=== PATIENT | female | born 1940 | race Caucasian/White ===

== ENCOUNTER 2021-08-20 10:12 | Inpatient (IN) | payer MEDICARE ==
[~2021-08-20] VITALS: Ht 157.5 cm; Wt 98.0 kg
[2021-08-20 10:48] LABS: BASOPHILS ABSOLUTE AUTO 0.04 K/mm3 (0.00-0.23); BASOPHILS PERCENT AUTO 1 % (0-2); EOSINOPHILS ABSOLUTE AUTO 0.11 K/mm3 (0.00-0.68); EOSINOPHILS PERCENT AUTO 1 % (0-6); Hematocrit 28.1 % (33.0-51.0); Hemoglobin 9.2 g/dL (11.5-16.0); IMMATURE GRAN ABSOLUTE AUTO 0.03 K/mm3 (0.00-0.10); IMMATURE GRAN PERCENT AUTO 0 % (0-1); LYMPHOCYTES ABSOLUTE AUTO 0.89 K/mm3 (0.84-5.20); LYMPHOCYTES PERCENT AUTO 10 % (21-46); MONOCYTES ABSOLUTE AUTO 0.51 K/mm3 (0.16-1.47); MONOCYTES PERCENT AUTO 6 % (4-13); Mean Corpuscular HGB 31.8 pg (26.0-34.0); Mean Corpuscular HGB Conc 32.7 g/dL (31.5-36.5); Mean Corpuscular Volume 97 fL (80-100); Mean Platelet Volume 10.2 fL (9.1-12.4); NEUTROPHILS ABSOLUTE AUTO 7.24 K/mm3 (1.96-9.15); NEUTROPHILS PERCENT AUTO 82 % (41-73); Platelet Count 155 K/mm3 (150-400); RDW Coefficient Variation 13.8 % (11.7-14.2); RDW Standard Deviation 49.5 fL (35.1-46.3); Red Blood Cell Count 2.89 M/mm3 (3.80-5.20); White Blood Cell Count 8.82 K/mm3 (4.00-11.30)
[2021-08-20 11:26] LABS: Albumin, Blood 3.2 g/dL (3.4-5.0); Albumin/Globulin Ratio 0.8 (0.8-1.8); Bilirubin, Total 0.4 mg/dL (0.1-1.0); Bun/Creatinine Ratio 8.8 (12.0-20.0); Calcium, Blood 9.5 mg/dL (8.5-10.1); Creatinine, Blood 9.06 mg/dL (0.40-1.00); Globulin, Blood 3.8 g/dL (2.2-4.0); Potassium, Blood 4.5 mmol/L (3.5-5.5)
[2021-08-20 14:53] LABS: SARS-Cov-2 (COVID-19) PCR, MMC NEGATIVE (NEGATIVE)
[2021-08-20] MEDS ORDERED: Simvastatin20 MG (15:21)
[2021-08-20] MEDS ORDERED: ELIQUIS5 M3 (15:21)
[2021-08-20] MEDS ORDERED: FURO80 (15:21)
[2021-08-20] MEDS ORDERED: AMLODIPINE BESYL5 MG PO (15:22)
[2021-08-20] MEDS ORDERED: METOPROLOL TART50 M5 PO (15:22)
[2021-08-20] MEDS ORDERED: RENVELA800 MG (15:22)
[2021-08-20] MEDS ORDERED: PRED1 PO (15:23)
[2021-08-20] MEDS ORDERED: TRESIBA FL100 UNIT/2 (15:23)
[2021-08-20] MEDS ORDERED: ADMELOG SO100 UNIT/2 (15:23)
[2021-08-21 06:00] LABS: BASOPHILS ABSOLUTE AUTO 0.03 K/mm3 (0.00-0.23); BASOPHILS PERCENT AUTO 0 % (0-2); EOSINOPHILS ABSOLUTE AUTO 0.18 K/mm3 (0.00-0.68); EOSINOPHILS PERCENT AUTO 3 % (0-6); Hematocrit 27.8 % (33.0-51.0); IMMATURE GRAN ABSOLUTE AUTO 0.02 K/mm3 (0.00-0.10); IMMATURE GRAN PERCENT AUTO 0 % (0-1); LYMPHOCYTES ABSOLUTE AUTO 0.87 K/mm3 (0.84-5.20); LYMPHOCYTES PERCENT AUTO 12 % (21-46); MONOCYTES ABSOLUTE AUTO 0.64 K/mm3 (0.16-1.47); MONOCYTES PERCENT AUTO 9 % (4-13); Mean Corpuscular HGB 31.6 pg (26.0-34.0); Mean Corpuscular HGB Conc 32.4 g/dL (31.5-36.5); Mean Corpuscular Volume 98 fL (80-100); Mean Platelet Volume 9.9 fL (9.1-12.4); NEUTROPHILS ABSOLUTE AUTO 5.32 K/mm3 (1.96-9.15); NEUTROPHILS PERCENT AUTO 75 % (41-73); Platelet Count 138 K/mm3 (150-400); RDW Coefficient Variation 13.8 % (11.7-14.2); Red Blood Cell Count 2.85 M/mm3 (3.80-5.20); White Blood Cell Count 7.06 K/mm3 (4.00-11.30)
[2021-08-21 06:34] LABS: Magnesium, Blood 3.3 mg/dL (1.6-2.4)
[2021-08-21 06:41] LABS: Albumin, Blood 2.9 g/dL (3.4-5.0); Albumin/Globulin Ratio 0.8 (0.8-1.8); Bilirubin, Total 0.6 mg/dL (0.1-1.0); Bun/Creatinine Ratio 9.1 (12.0-20.0); Calcium, Blood 9.3 mg/dL (8.5-10.1); Creatinine, Blood 9.12 mg/dL (0.40-1.00); Globulin, Blood 3.5 g/dL (2.2-4.0); Phosphorus, Blood 7.9 mg/dL (2.5-4.9); Potassium, Blood 4.1 mmol/L (3.5-5.5); Total Protein, Blood 6.4 g/dL (6.4-8.2)
--- NOTE | 2021-08-21 14:19 | NUR ---
DISCHARGE NOTE PT IS AOX4. IV REMOVED BY THIS RN PER DOCUMENTATION. DC INSTRUCTIONS AND MEDICATIONS REVIEWED WITH PT WHO VERBALIZED UNDERSTANDING. PT HAD DIALYSIS TODAY AND WAS INSTRUCTED TO CONTINUE DIALYSIS IN [place] UNTIL AN OPENING OCCURS IN [facility], ACCORDING TO DC PLANNING. PT DRESSED SELF IN HOME CLOTHING. BELONGINGS GATHERED FROM ROOM. PT ASSISTED INTO WHEELCHAIR BY CLINICAL DERMATOLOGIST AND WHEELED OFF UNIT WITH BELONGINGS TO PRIVATE VEHICLE.
== END 2021-08-21 13:27 | disposition home or self-care (01) | DRG 640 ==
LOC: ER 10:12 → MEDS 13:07
PROVIDERS: Emergency Medicine; Nurse Practitioner Acute Care; ADMIT Internal Medicine
PROC: 5A1D70Z Performance of Urinary Filtration, Intermittent, Less than 6 Hours Per Day (ICD-10-PCS; principal; 2021-08-20)
DX: E87.70 Fluid overload, unspecified (principal); N18.6 End stage renal disease; I13.2 Hypertensive heart and chronic kidney disease with heart failure and with stage 5 chronic kidney disease, or end stage renal disease; Z20.822 Contact with and (suspected) exposure to COVID-19; I50.9 Heart failure, unspecified; E88.09 Other disorders of plasma-protein metabolism, not elsewhere classified; D63.1 Anemia in chronic kidney disease; E11.22 Type 2 diabetes mellitus with diabetic chronic kidney disease; E03.9 Hypothyroidism, unspecified; Z99.2 Dependence on renal dialysis; Z95.2 Presence of prosthetic heart valve; Z88.5 Allergy status to narcotic agent
CPT/HCPCS: 36415; 71045; 80053; 82947; 83735; 83880; 84100; 84484; 85025; 93005; 93010; 99285-25; A9270; J0881; J1644; U0004

== ENCOUNTER 2022-04-10 12:30 | Emergency (ER) | payer MEDICARE ==
[~2022-04-10] VITALS: Ht 157.5 cm; Wt 83.0 kg
[~2022-04-10 12:30] MED LIST: ADMELOG SO100 UNIT/2; AMLODIPINE BESYL5 MG PO; ELIQUIS5 M3 PO; FURO80 PO; METOPROLOL TART50 M5 PO; PRED1 PO; RENVELA800 MG PO; Simvastatin20 MG PO; TRESIBA FL100 UNIT/2 SC
[2022-04-10 14:13] LABS: BASOPHILS ABSOLUTE AUTO 0.02 K/mm3 (0.00-0.23); BASOPHILS PERCENT AUTO 0 % (0-2); EOSINOPHILS PERCENT AUTO 0 % (0-6); Hematocrit 31.1 % (33.0-51.0); Hemoglobin 9.9 g/dL (11.5-16.0); IMMATURE GRAN ABSOLUTE AUTO 0.09 K/mm3 (0.00-0.10); IMMATURE GRAN PERCENT AUTO 1 % (0-1); LYMPHOCYTES ABSOLUTE AUTO 0.24 K/mm3 (0.84-5.20); LYMPHOCYTES PERCENT AUTO 1 % (21-46); MONOCYTES ABSOLUTE AUTO 0.57 K/mm3 (0.16-1.47); MONOCYTES PERCENT AUTO 3 % (4-13); Mean Corpuscular HGB 30.7 pg (26.0-34.0); Mean Corpuscular HGB Conc 31.8 g/dL (31.5-36.5); Mean Corpuscular Volume 97 fL (80-100); Mean Platelet Volume 10.2 fL (9.1-12.4); NEUTROPHILS PERCENT AUTO 95 % (41-73); Platelet Count 137 K/mm3 (150-400); RDW Coefficient Variation 14.3 % (11.7-14.2); RDW Standard Deviation 50.4 fL (35.1-46.3); Red Blood Cell Count 3.22 M/mm3 (3.80-5.20); White Blood Cell Count 16.82 K/mm3 (4.00-11.30)
[2022-04-10 14:15] LABS: Albumin/Globulin Ratio 0.8 (0.8-1.8); Bilirubin, Total 0.5 mg/dL (0.1-1.0); Bun/Creatinine Ratio 10.9 (12.0-20.0); Calcium, Blood 9.7 mg/dL (8.5-10.1); Creatinine, Blood 5.99 mg/dL (0.40-1.00); Globulin, Blood 3.6 g/dL (2.2-4.0); Potassium, Blood 4.1 mmol/L (3.5-5.5); Total Protein, Blood 6.6 g/dL (6.4-8.2)
[2022-04-10 15:33] LABS: Influenza A Negative (NEGATIVE); Influenza B Negative (NEGATIVE)
[2022-04-10 16:02] LABS: SARS-Cov-2 (COVID-19) PCR, MMC NEGATIVE (NEGATIVE)
[2022-04-10 16:33] LABS: Source, Urine Straight Cath
[2022-04-10 16:42] LABS: Appearance, Urine Clear (Clear); Bilirubin, Urine Neg (Neg); Blood, Urine 2+ (Neg); Color, Urine Yellow (P-Yellow); Glucose Qualitative, Urine 3+ (Neg); Ketones, Urine 2+ (Neg); Leukocyte Esterase, Urine Neg (Neg); Nitrite, Urine Neg (Neg); Protein, Urine 4+ (Neg); Specific Gravity, Urine 1.015 (1.003-1.022); Urobilinogen, Urine NORM (Normal)
[2022-04-10 17:01] LABS: Bacteria Few /hpf; Squamous Epithelial Cells Few /hpf (Few); White Blood Cells, Urine 0-2 /hpf (0-5)
[2022-04-11] MEDS ORDERED: CARBIDOPA-LEVO1 EAC9 PO (16:05)
[2022-04-11] MEDS ORDERED: BENZ100A PO (16:07)
[2022-04-11] MEDS ORDERED: TRAM50 PO (16:08)
[2022-04-11] MEDS ORDERED: HUMALOG KW100 UNIT/1 (16:09)
== END 2022-04-10 18:54 | disposition home or self-care (01) ==
LOC: ER 12:30
PROVIDERS: Emergency Medicine; Student in an Organized Health Care Education/Training Program
DX: B34.9 Viral infection, unspecified (principal); I12.0 Hypertensive chronic kidney disease with stage 5 chronic kidney disease or end stage renal disease; E11.22 Type 2 diabetes mellitus with diabetic chronic kidney disease; N18.6 End stage renal disease; Z99.2 Dependence on renal dialysis; Z20.822 Contact with and (suspected) exposure to COVID-19; Z79.4 Long term (current) use of insulin; Z79.899 Other long term (current) drug therapy; Z79.01 Long term (current) use of anticoagulants; Z79.52 Long term (current) use of systemic steroids
CPT/HCPCS: 36415; 71045; 72100; 80053; 81001; 83605; 85025; 87804; 93005; 93010; J0696; J1170; J2405; U0004

== ENCOUNTER 2022-04-11 13:20 | Inpatient (IN) | payer MEDICARE ==
[~2022-04-11] VITALS: Ht 165.1 cm; Wt 84.2 kg
[2022-04-11 14:23] LABS: BASOPHILS ABSOLUTE AUTO 0.03 K/mm3 (0.00-0.23); BASOPHILS PERCENT AUTO 0 % (0-2); EOSINOPHILS PERCENT AUTO 0 % (0-6); Hematocrit 29.3 % (33.0-51.0); Hemoglobin 9.5 g/dL (11.5-16.0); IMMATURE GRAN ABSOLUTE AUTO 0.15 K/mm3 (0.00-0.10); IMMATURE GRAN PERCENT AUTO 1 % (0-1); LYMPHOCYTES ABSOLUTE AUTO 0.32 K/mm3 (0.84-5.20); LYMPHOCYTES PERCENT AUTO 2 % (21-46); MONOCYTES ABSOLUTE AUTO 1.02 K/mm3 (0.16-1.47); MONOCYTES PERCENT AUTO 7 % (4-13); Mean Corpuscular HGB 31.3 pg (26.0-34.0); Mean Corpuscular HGB Conc 32.4 g/dL (31.5-36.5); Mean Corpuscular Volume 96 fL (80-100); Mean Platelet Volume 10.3 fL (9.1-12.4); NEUTROPHILS ABSOLUTE AUTO 14.07 K/mm3 (1.96-9.15); NEUTROPHILS PERCENT AUTO 90 % (41-73); Platelet Count 137 K/mm3 (150-400); RDW Coefficient Variation 14.4 % (11.7-14.2); RDW Standard Deviation 50.7 fL (35.1-46.3); Red Blood Cell Count 3.04 M/mm3 (3.80-5.20); White Blood Cell Count 15.59 K/mm3 (4.00-11.30)
[2022-04-11 14:41] LABS: Albumin, Blood 2.9 g/dL (3.4-5.0); Albumin/Globulin Ratio 0.8 (0.8-1.8); Bilirubin, Total 0.5 mg/dL (0.1-1.0); Bun/Creatinine Ratio 12.5 (12.0-20.0); Calcium, Blood 9.5 mg/dL (8.5-10.1); Creatinine, Blood 7.35 mg/dL (0.40-1.00); Globulin, Blood 3.7 g/dL (2.2-4.0); Potassium, Blood 4.9 mmol/L (3.5-5.5); Total Protein, Blood 6.6 g/dL (6.4-8.2)
[2022-04-11] MEDS ORDERED: CARBIDOPA-LEVO1 EA15 PO (16:05)
[2022-04-11] MEDS ORDERED: BENZ100A PO (16:07)
[2022-04-11] MEDS ORDERED: TRAM50 PO (16:08)
[2022-04-11] MEDS ORDERED: HUMALOG KW100 UNIT/1 SC (16:09)
[2022-04-12 05:31] LABS: BASOPHILS ABSOLUTE AUTO 0.02 K/mm3 (0.00-0.23); BASOPHILS PERCENT AUTO 0 % (0-2); EOSINOPHILS ABSOLUTE AUTO 0.03 K/mm3 (0.00-0.68); EOSINOPHILS PERCENT AUTO 0 % (0-6); Hematocrit 29.1 % (33.0-51.0); Hemoglobin 9.2 g/dL (11.5-16.0); IMMATURE GRAN PERCENT AUTO 1 % (0-1); LYMPHOCYTES ABSOLUTE AUTO 0.83 K/mm3 (0.84-5.20); LYMPHOCYTES PERCENT AUTO 7 % (21-46); MONOCYTES ABSOLUTE AUTO 1.67 K/mm3 (0.16-1.47); MONOCYTES PERCENT AUTO 13 % (4-13); Mean Corpuscular HGB 30.7 pg (26.0-34.0); Mean Corpuscular HGB Conc 31.6 g/dL (31.5-36.5); Mean Corpuscular Volume 97 fL (80-100); Mean Platelet Volume 10.7 fL (9.1-12.4); NEUTROPHILS ABSOLUTE AUTO 10.07 K/mm3 (1.96-9.15); NEUTROPHILS PERCENT AUTO 79 % (41-73); Platelet Count 135 K/mm3 (150-400); RDW Coefficient Variation 14.3 % (11.7-14.2); RDW Standard Deviation 50.6 fL (35.1-46.3); White Blood Cell Count 12.72 K/mm3 (4.00-11.30)
--- NOTE | 2022-04-12 05:52 | NUR ---
PT A/0X4, VERY PLEASANT. PT WITH SEVERE BACK PAIN WITH MOVEMENT STATES THAT IS HAS PROGRESSIVELY GOTTEN WORSE OVER THE PAST 3 DAYS. PT RECEIVED 1 DOSE OF TRAMADOL AROUND 1840 AND DID NOT NEED ANY ADDITIONAL PT STATES THAT IF SHE LAYS STILL SHE IS NOT IN PAIN. NOTIFIED BY LABORER SHIPYARD THAT PT HAD SHORT RUNS OF SVT AND HR HIGH 150 NON SUSTANINING. SCHEDULED METOPROLOL GIVEN AND NO OTHER NOTIFICATIONS RECEVIED REGARDING SVT. PER LABORER SHIPYARD PT RHYTHM VENTRICULAR BYGEMINY WITH PACS AND PVCS. K 4.9 HOWEVER NO MG LAB DRAW. SKYLER LAWS NOTIFIED WITH ORDER FOR MG. MG 3.1. PT ASYMPTOMATIC THROUGHOUT THIS. PT DID NOT URINATE DURING THIS SHIFT. PER REPORT SHE WAS UP TO COMMODE TO URINATE RIGHT BEFORE SHIFT CHANGE. BLADDER SCAN INITIALLY 227 THEN 347 AROUND 0540. PT STATES SHE STILL MAKES URINE AND FEELS LIKE SHE NEEDS TO. DR. DELGADILLO MADE AWARE AND PER NO NEW ORDERS AT THIS TIME CONTINUE TO MONITOR. PT WITH DNR ORDER.DNR BAND APPLIED AND VERIFIED WITH GRISELDA CARRION RN. PT LONG ACTING INSULIN TRESIBA NOT GIVEN, PER PT SISTER IS ABLE TO BRING MEDICATION TODAY. WILL ENDORSE TO ONCOMING RN.
[2022-04-12 05:54] LABS: Albumin, Blood 2.6 g/dL (3.4-5.0); Albumin/Globulin Ratio 0.7 (0.8-1.8); Bilirubin, Total 0.4 mg/dL (0.1-1.0); Bun/Creatinine Ratio 12.6 (12.0-20.0); Calcium, Blood 9.5 mg/dL (8.5-10.1); Creatinine, Blood 7.86 mg/dL (0.40-1.00); Globulin, Blood 3.5 g/dL (2.2-4.0); Magnesium, Blood 3.5 mg/dL (1.6-2.4); Phosphorus, Blood 7.4 mg/dL (2.5-4.9); Potassium, Blood 4.5 mmol/L (3.5-5.5); Total Protein, Blood 6.1 g/dL (6.4-8.2)
--- NOTE | 2022-04-12 06:41 | NUR ---
SPOKE WITH ARNOLDO PT SISTER ON THE PHONE AND SHE STATES THAT SHE CAN BRING PT INSULIN TRESIBA TODAY. WILL ENDORSE TO ONCOMING RN.
--- NOTE | 2022-04-12 09:13 | NUR ---
DRESSING CHANGED ON LEFT ELBOW
--- NOTE | 2022-04-12 10:42 | NUR ---
PATIENT SLEEPING COMFORTABLY. CALL LIGHT IN REACH. BED IN LOWEST POSITION.
--- NOTE | 2022-04-12 18:09 | NUR ---
SHIFT SUMMARY: PATIENT ALERT AND ORIENTED X4. SHE HAS BEEN VERY PLEASANT TO WORK WITH. SHE ATE BOTH HER BREAKFAST AND LUNCH BUT HAS NOT HAD AN APPETITE FOR DINNER. SHE WENT TO DIALYSIS AT 1300 TODAY AND RETURNED AT 1600. WHILE SHE WAS AWAY, WE GOT A CALL THAT HER IV WAS LEAKING. TOOK HER IV OUT AND PUT A NEW ONE IN. SHE HAS BEEN MAKING SMALL AMOUNTS OF URINE. SHE IS CONTINENT AND WANTED TO USE THE BEDPAN. WE WERE ABLE TO ROLL HER TO GET HER ON IT BUT WITH HER CHRONIC BACK PAIN, SHE WAS NOT ABLE TO HELP. TRAMADOL WAS D/C'D AND AN ORDER OF NORCO Q8HRS IS IN PLACE. BED IN LOWEST POSITION. CALL LIGHT IN REACH. WILL CONTINUE TO MONITOR UNTIL THE END OF THE SHIFT.
--- NOTE | 2022-04-12 18:33 | NUR ---
REVIEWED NOTES AND ASSESSMENT DOCUMENTATION ENTERED BY RAMONITA, STUDENT NURSE AND I AGREE WITH HER CHARTING ON THIS PATIENT.
[2022-04-13 04:58] LABS: BASOPHILS ABSOLUTE AUTO 0.02 K/mm3 (0.00-0.23); BASOPHILS PERCENT AUTO 0 % (0-2); EOSINOPHILS ABSOLUTE AUTO 0.15 K/mm3 (0.00-0.68); EOSINOPHILS PERCENT AUTO 2 % (0-6); Hematocrit 27.7 % (33.0-51.0); Hemoglobin 8.8 g/dL (11.5-16.0); IMMATURE GRAN ABSOLUTE AUTO 0.06 K/mm3 (0.00-0.10); IMMATURE GRAN PERCENT AUTO 1 % (0-1); LYMPHOCYTES ABSOLUTE AUTO 0.75 K/mm3 (0.84-5.20); LYMPHOCYTES PERCENT AUTO 9 % (21-46); MONOCYTES ABSOLUTE AUTO 1.15 K/mm3 (0.16-1.47); MONOCYTES PERCENT AUTO 14 % (4-13); Mean Corpuscular HGB 30.6 pg (26.0-34.0); Mean Corpuscular HGB Conc 31.8 g/dL (31.5-36.5); Mean Corpuscular Volume 96 fL (80-100); Mean Platelet Volume 10.6 fL (9.1-12.4); NEUTROPHILS ABSOLUTE AUTO 6.38 K/mm3 (1.96-9.15); NEUTROPHILS PERCENT AUTO 75 % (41-73); Platelet Count 144 K/mm3 (150-400); RDW Standard Deviation 49.5 fL (35.1-46.3); Red Blood Cell Count 2.88 M/mm3 (3.80-5.20); White Blood Cell Count 8.51 K/mm3 (4.00-11.30)
[2022-04-13 05:13] LABS: Albumin, Blood 2.4 g/dL (3.4-5.0); Anion Gap 10 mmol/L (6-16); Blood Urea Nitrogen 73 mg/dL (8-24); Bun/Creatinine Ratio 12.6 (12.0-20.0); CO2, Blood 30 mmol/L (21-32); Calcium, Blood 8.9 mg/dL (8.5-10.1); Chloride, Blood 100 mmol/L (98-108); Glomerular Filtration Rate 7 (60-); Glucose, Blood 209 mg/dL (70-99); Magnesium, Blood 2.9 mg/dL (1.6-2.4); Phosphorus, Blood 5.3 mg/dL (2.5-4.9); Sodium, Blood 140 mmol/L (136-145)
--- NOTE | 2022-04-13 06:38 | NUR ---
PT A/O X4 VERY PLEASANT AND ABLE TO MAKE NEEDES KNOWN. PT CONTINUES WITH SEVERE BACK PAIN WITH MOVEMENT. LONG ACTING INSULIN DOSE CUT IN HALF PER DR. LUNA DUE TO PATIENT BEING NPO AFTER MIDNIGHT. PATIENT WITH NO NEW CONCENRS/COMPLAINS THIS SHIFT.
--- NOTE | 2022-04-13 10:21 | NUR ---
PATIENT WORKED WITH THERAPY THIS MORNING. SHE WAS ABLE TO TRANSER TO THE BEDSIDE COMMODE AND WAS ABLE TO STAND TO TRANSFER TO THE RECLINER. FENTANYL PATCH WAS PLACED ON HER RIGHT SHOULDER TO HELP WITH HER BACK PAIN.
--- NOTE | 2022-04-13 10:24 | NUR ---
PATIENT TAKEN TO GET COCCYX AAND SACRUM XRAY. WAS ABLE TO TRANFER WITH ONE PERSON ASSIST.
--- NOTE | 2022-04-13 10:37 | NUR ---
PT RETURNED FROM XRAY
--- NOTE | 2022-04-13 16:54 | NUR ---
SHIFT SUMMARY: PATIENT ALERT AND ORIENTED X4. SHE WORKED WITH THERAPY THIS MORNING AND WAS ABLE TO SLOWLY TRANSFER TO THE BEDSIDE COMMODE. SHE HAS A LOT OF PAIN IN HER BACK. 25MCG FENTANYL PATCH WAS APPLIED TO RIGHT SHOULDER BUT HAS NOT SEEMED TO HELP WITH THE PAIN. SHE WAS GIVEN A DOSE OF NORCO AND HAS SCHEDULED TRAMADOL TO HELP TRY TO KEEP HER COMFORTABLE. HER BLOOD CULTURES CAME BACK GRAM POSITVE COCCI WITH CHAINS. SHE HAD AN XRAY OF HER SACRUM AND COCCYX WHICH SEEMED TO SHOW NO ACUTE BONE INJURY. SHE IS CURRENTY COMFORTABLE IN HER RECLINER. CALL LIGHT IN REACH.
--- NOTE | 2022-04-13 17:07 | NUR ---
PATIENT A/OX4, UP WITH SBA IN ROOM. GAIT STEADY, JUST STANDING BY DUE TO RECENT SNYCOPAL EPISODE AT HOME. COVID POSITIVE, LUNGS CLEAR ON RA. CONTINUES TO HAVE DIARRHEA, STOOL SAMPLE SENT TO LAB. VSS, NSR ON TELE WITH RATE IN THE 70'S. PATIENT DENIES ANY CP OR SHORTNESS OF BREATH. SKIN INTACT. CONTINENT OF URINE/STOOL. CPAP AT [facility] AND PATIENT IS ON CONTINUOUS PULSE OX WITH SATS >95%. NO NEW CONCERNS THIS SHIFT. PATIENT IS VERY PLEASANT AND COOPERTIVE WITH CARE AND CALLS APPROPRIATELY OR ASSISTANCE.
--- NOTE | 2022-04-13 17:15 | NUR ---
PATIENT STATES THIS IS THE BEST SHE HAS FELT IN DAYS WITH HER BACK PAIN
--- NOTE | 2022-04-13 17:42 | NUR ---
REVIEWED NOTES AND ASSESSMENT DOCUMENTATION RECORDED BY RAMONITA, STUDENT NURSE AND I AGREE WITH HER CHARTING ON THIS PATIENT.
--- NOTE | 2022-04-14 05:35 | NUR ---
PT A/OX4, ABLE TO MAKE NEEDS KNOWN. PT C/O SPASMS AND SEVERE PAIN. MD NOTIFIED WITH ORDER FOR FLEXERIL. PT MEDICATED PER JAN AND THIS MORNING STATING THAT "THIS IS THE BEST SLEEP I'VE HAD IN DAYS." DOCUMENTED HR OF 30 HOWEVER THAT WAS INCORRECT. CASEY SAW OPERATOR AT THAT TIME READ 77. PT WITH NO NEW C/O OVERNIGHT.
--- NOTE | 2022-04-14 16:44 | NUR ---
SHIFT SUMMARY: PATIENT ALERT AND ORIENTED X4. SHE HAS BEEN IN PAIN THE MAJORITY OF THE DAY IN HER BACK AND HIPS. DOSED HER WITH PRN AND SCHEDULED PAIN MEDICATION TO TRY TO KEEP HER COMFORTABLE. SHE HAD DIALYSIS TODAY AND HAS SLEPT SINCE HER RETURN AT 1530. TELE WAS DC'D. SHE HAD MOMENTS OF LOW BLOOD PRESSURES AND PULSES THROUGHOUT THE DAY. SHE WORKED WITH THERAPY THIS MORNING AND CONTINUES TO TRANSFER WITH A ONE PERSON ASSIST AND GAIT BELT TO THE BEDSIDE COMMODE. INSULIN DOSAGE WAS CHANGED TO A SLIDING SCALE. CALL LIGHT IN REACH. BED IN LOWEST POSITION. WILL CONTINUE TO MONITOR UNTIL THE END OF SHIFT.
--- NOTE | 2022-04-14 18:00 | NUR ---
REVIEWED NOTES AND ASSESSMENT DOCUMENTATION RECORDED BY RAMONITA, STUDENT NURSE AND AGREE WITH HER CHARTING FOR THIS PATIENT.
[2022-04-15 06:10] LABS: Bun/Creatinine Ratio 9.7 (12.0-20.0); Calcium, Blood 9.3 mg/dL (8.5-10.1); Creatinine, Blood 4.75 mg/dL (0.40-1.00); Potassium, Blood 3.4 mmol/L (3.5-5.5)
[2022-04-15 06:37] LABS: BASOPHILS ABSOLUTE AUTO 0.03 K/mm3 (0.00-0.23); BASOPHILS PERCENT AUTO 0 % (0-2); EOSINOPHILS PERCENT AUTO 3 % (0-6); Hematocrit 31.8 % (33.0-51.0); Hemoglobin 10.2 g/dL (11.5-16.0); IMMATURE GRAN ABSOLUTE AUTO 0.06 K/mm3 (0.00-0.10); IMMATURE GRAN PERCENT AUTO 1 % (0-1); LYMPHOCYTES ABSOLUTE AUTO 0.67 K/mm3 (0.84-5.20); LYMPHOCYTES PERCENT AUTO 9 % (21-46); MONOCYTES ABSOLUTE AUTO 0.65 K/mm3 (0.16-1.47); MONOCYTES PERCENT AUTO 9 % (4-13); Mean Corpuscular HGB 30.5 pg (26.0-34.0); Mean Corpuscular HGB Conc 32.1 g/dL (31.5-36.5); Mean Corpuscular Volume 95 fL (80-100); Mean Platelet Volume 9.5 fL (9.1-12.4); NEUTROPHILS ABSOLUTE AUTO 5.75 K/mm3 (1.96-9.15); NEUTROPHILS PERCENT AUTO 78 % (41-73); Platelet Count 165 K/mm3 (150-400); RDW Coefficient Variation 14.2 % (11.7-14.2); RDW Standard Deviation 49.6 fL (35.1-46.3); Red Blood Cell Count 3.34 M/mm3 (3.80-5.20); White Blood Cell Count 7.36 K/mm3 (4.00-11.30)
--- NOTE | 2022-04-15 06:42 | NUR ---
SHIFT SUMMARY PATIENT ALERT AND ORIENTED. MEDICATED PER EMAR FOR PAIN. HAD NO COMPLAINTS OF SHORTNESS OF BREATH. NO ACUTE ISSUES NOTED OVERNIGHT. CALL LIGHT WITHIN REACH. REPORT GIVEN TO ONCOMING RN.
[2022-04-15] MEDS ORDERED: CEFTRIAXONE2 G1 IV (11:08)
[2022-04-15] MEDS ORDERED: INSULIN GL100 UNIT/2 SC (11:10)
[2022-04-15 11:38] LABS: SARS-Cov-2 (COVID-19) PCR, MMC POSITIVE (NEGATIVE)
[2022-04-15 12:13] LABS: SARS-Cov-2 (COVID-19) Antigen Negative (NEGATIVE)
--- NOTE | 2022-04-15 13:45 | NUR ---
DISCHARGE SUMMARY PATIENT IS ALERT AND ORIENTED. PATIENT IS PLEASENT AND COOPERATIVE WITH CARE. PATIENT HAS HAD NO ACUTE EVENTS THIS SHIFT. VITAL SIGNS REVIEWED. PATIENT REPORTED NO SOB, NAUSEA, VOMITTING. PATIENT HAS HAD PAIN WITH MOVEMENT. PATIENT WAS DISCHARGED TO SNF AFTER PICC LINE PLACEMENT EARLIER IN SHIFT.
--- NOTE | 2022-04-16 21:15 | NUR ---
REVIEWED INFORMATION FOR CURRENT ADMISSION
== END 2022-04-15 13:39 | DRG 871 ==
LOC: ER 13:20 → MEDS 18:02
PROVIDERS: Internal Medicine; Internal Medicine Nephrology; Student in an Organized Health Care Education/Training Program; ADMIT Internal Medicine
PROC: 3E03329 Introduction of Other Anti-infective into Peripheral Vein, Percutaneous Approach (ICD-10-PCS; principal; 2022-04-11)
PROC: 5A1D70Z Performance of Urinary Filtration, Intermittent, Less than 6 Hours Per Day (ICD-10-PCS; 2022-04-14)
PROC: 06HY33Z Insertion of Infusion Device into Lower Vein, Percutaneous Approach (ICD-10-PCS; 2022-04-15)
DX: A40.8 Other streptococcal sepsis (principal); I33.0 Acute and subacute infective endocarditis; N18.6 End stage renal disease; G92.8 Other toxic encephalopathy; I13.2 Hypertensive heart and chronic kidney disease with heart failure and with stage 5 chronic kidney disease, or end stage renal disease; I50.42 Chronic combined systolic (congestive) and diastolic (congestive) heart failure; R65.20 Severe sepsis without septic shock; Z66 Do not resuscitate; E87.70 Fluid overload, unspecified; D63.1 Anemia in chronic kidney disease; E11.22 Type 2 diabetes mellitus with diabetic chronic kidney disease; I35.0 Nonrheumatic aortic (valve) stenosis; I25.10 Atherosclerotic heart disease of native coronary artery without angina pectoris; E88.09 Other disorders of plasma-protein metabolism, not elsewhere classified; M54.50 Low back pain, unspecified; G89.29 Other chronic pain; E87.6 Hypokalemia; Z20.822 Contact with and (suspected) exposure to COVID-19; Z99.2 Dependence on renal dialysis; Z91.15 Patient's noncompliance with renal dialysis; Z79.01 Long term (current) use of anticoagulants; Z95.4 Presence of other heart-valve replacement; Z79.02 Long term (current) use of antithrombotics/antiplatelets; Z79.4 Long term (current) use of insulin; Z79.891 Long term (current) use of opiate analgesic; Z79.2 Long term (current) use of antibiotics; Z88.5 Allergy status to narcotic agent; Z79.899 Other long term (current) drug therapy; Z95.828 Presence of other vascular implants and grafts; Z98.49 Cataract extraction status, unspecified eye
CPT/HCPCS: 36415; 36569; 72220; 80048; 80053; 80069; 82947; 83605; 83735; 84100; 84132; 85018; 85025; 85651; 86140; 87040; 87426; 87811; 93005; 93010; 93306; 94760; 96361; 96374; 97110; 97162; 97165; 97530; 99285-25; A9270; C1751; C9803; J0696; J0881; J1815; J7030; U0004

== ENCOUNTER 2022-04-15 17:23 | Inpatient (IN) | payer MEDICARE ==
[~2022-04-15] VITALS: Ht 157.5 cm; Wt 83.0 kg
[~2022-04-15 17:23] MED LIST changes: +BENZ100A PO; +CARBIDOPA-LEVO1 EA15 PO; +CEFTRIAXONE2 G1 IV; +HUMALOG KW100 UNIT/1 SC; +INSULIN GL100 UNIT/2 SC; +TRAM50 PO
--- NOTE | 2022-04-15 20:32 | NUR ---
HOSPITALIST DR GORDILLO CALLED THAT DR CONLEY DID NOT PUT IN ANY ORDERS FOR HIS NEW ADMIT. PATIENT ADMITTED AT 17:49 ON DAY SHIFT. DAY RN REPORTED DR MAYA WAS IN A MEETING. DAY RN REPORTED TO CALL DR GORDILLO IF DR MAYA DID NOT PLACE ORDERS.
--- NOTE | 2022-04-15 21:08 | NUR ---
DR RODGERS CONSULT CALL INTO HIM.
--- NOTE | 2022-04-16 05:00 | NUR ---
PT A/O X 4. VS STABLE. PT IS ON RA. PT ON ENHANCED ISO PER COVID PROTOCOL. PT IS PLEASANT AND COOPRATIVE WITH CARE. PT WAS INCONTINENT OF URINE X 1 AND PULL UP CHANGED. PT HAS DYALYSIS SCHEDULED FOR 04/16/22. PT IS ON BEDREST AND USES CALL LIGHT APPROPRIATELY. PT HAS PICC IN JAVI AND FISTULA IN [facility]. PT IS RESTING WITH CALL LIGHT WITHIN REACH, BED IN LOWEST POSITION, AND BED ALARM ON.
--- NOTE | 2022-04-16 05:07 | NUR ---
INTERPRETIVE NATURALIST NOTE AND DOCUMENTS REVIEWED AND IN AGREEMENT
[2022-04-16 05:09] LABS: BASOPHILS ABSOLUTE AUTO 0.02 K/mm3 (0.00-0.23); BASOPHILS PERCENT AUTO 0 % (0-2); EOSINOPHILS ABSOLUTE AUTO 0.06 K/mm3 (0.00-0.68); EOSINOPHILS PERCENT AUTO 1 % (0-6); Hematocrit 26.8 % (33.0-51.0); Hemoglobin 8.5 g/dL (11.5-16.0); IMMATURE GRAN ABSOLUTE AUTO 0.05 K/mm3 (0.00-0.10); IMMATURE GRAN PERCENT AUTO 1 % (0-1); LYMPHOCYTES ABSOLUTE AUTO 0.67 K/mm3 (0.84-5.20); LYMPHOCYTES PERCENT AUTO 14 % (21-46); MONOCYTES ABSOLUTE AUTO 0.64 K/mm3 (0.16-1.47); MONOCYTES PERCENT AUTO 13 % (4-13); Mean Corpuscular HGB 30.6 pg (26.0-34.0); Mean Corpuscular HGB Conc 31.7 g/dL (31.5-36.5); Mean Corpuscular Volume 96 fL (80-100); Mean Platelet Volume 10.2 fL (9.1-12.4); NEUTROPHILS ABSOLUTE AUTO 3.34 K/mm3 (1.96-9.15); NEUTROPHILS PERCENT AUTO 70 % (41-73); Platelet Count 158 K/mm3 (150-400); RDW Coefficient Variation 14.1 % (11.7-14.2); RDW Standard Deviation 50.1 fL (35.1-46.3); Red Blood Cell Count 2.78 M/mm3 (3.80-5.20); White Blood Cell Count 4.78 K/mm3 (4.00-11.30)
[2022-04-16 05:26] LABS: Albumin, Blood 2.2 g/dL (3.4-5.0); Anion Gap 10 mmol/L (6-16); Blood Urea Nitrogen 55 mg/dL (8-24); Bun/Creatinine Ratio 9.4 (12.0-20.0); CO2, Blood 30 mmol/L (21-32); Calcium, Blood 9.2 mg/dL (8.5-10.1); Chloride, Blood 100 mmol/L (98-108); Creatinine, Blood 5.85 mg/dL (0.40-1.00); Glomerular Filtration Rate 7 (60-); Glucose, Blood 146 mg/dL (70-99); Magnesium, Blood 2.7 mg/dL (1.6-2.4); Phosphorus, Blood 5.4 mg/dL (2.5-4.9); Potassium, Blood 3.5 mmol/L (3.5-5.5); Sodium, Blood 140 mmol/L (136-145)
--- NOTE | 2022-04-16 15:14 | NUR ---
SHIFT SUMMARY PT IS A&O, PLEASANT AND CO-OP WITH CARE. UP TO CHAIR FOR MEALS AND BSC NEEDED. PER REPORT, PT TESTED NEG AND POSITIVE FOR COVID AND UNABLE TO D/C TO SNF. PT IS ASYMPTOMATIC. PT/OT BOTH IN TO SEE PT. BOWEL CARE ORDERED FOR CONSTIPATION. PT'S SISTER CALLED FOR UPDATE. NO C/O. CALL LT IN REACH. ABLE TO MAKE NEEDS KNOWN.
[2022-04-17 05:52] LABS: Hematocrit 26.6 % (33.0-51.0); Hemoglobin 8.6 g/dL (11.5-16.0)
--- NOTE | 2022-04-17 05:55 | NUR ---
AUDRA WAS FITFULL MOST OF THE NIGHT. SHE FREQUENTLY REQUESTED ASSISTANCE IN FINDING A POSITION OF COMFORT HER HIPS AND LEGS WERE INTERMITTANTLY QUITE PAINFUL WITH COMPLAINTS OF BURNING, THEN FREEZING IN BOTH LEGS. LEGS AND FEET WERE PINK AND WARM WITH STRONG DORSALIS PULSES AND <3 SEC CAP REFILL. PATIENT STATED THIS DISCOMFORT STARTED APPROXIMATELY 2 WEEKS AGO WHEN SHE HAD A FALL. SHE WAS MEDICATED TWICE WITH TRAMADOL AND TYLENOL WITH GOOD EFFECT. NO SIGNS/SYMPTOMS OF COVID INFECTION NOTED OVERNIGHT.
[2022-04-17 06:13] LABS: Albumin, Blood 2.2 g/dL (3.4-5.0); Anion Gap 9 mmol/L (6-16); Blood Urea Nitrogen 71 mg/dL (8-24); Bun/Creatinine Ratio 10.7 (12.0-20.0); CO2, Blood 31 mmol/L (21-32); Calcium, Blood 9.3 mg/dL (8.5-10.1); Chloride, Blood 98 mmol/L (98-108); Creatinine, Blood 6.66 mg/dL (0.40-1.00); Glomerular Filtration Rate 6 (60-); Glucose, Blood 208 mg/dL (70-99); Magnesium, Blood 3.1 mg/dL (1.6-2.4); Potassium, Blood 3.8 mmol/L (3.5-5.5); Sodium, Blood 138 mmol/L (136-145)
--- NOTE | 2022-04-17 19:09 | NUR ---
DAYSHIFT SUMMARY Pt OOB for all meals this shift, VSS. SSI administred. Pt had dialysis this morning. Pt reporting pain/numbness in thighs/buttocks, tramdol given PRN and repositioned for comfort. No changes to patient status, awaiting placement.
--- NOTE | 2022-04-18 04:27 | NUR ---
MUCH BETTER REST THAN THE NIGHT PRIOR. SEVERE LEG PAIN DISOLVED AFTER TAKING SINEMET FOR HER RESTLESS LEGS AT HS. PATIENT WAS ABLE TO PARTICIPATE AGAIN IN POSITION CHANGES. PATIENT GOT OOB WITH ONE ASSIST TO THE BEDSIDE COMMODE AND WAS ABLE TO MAKE A SMALL AMOUNT OF URINE. AUDRA IS A&OX4, VERY PLEASANT AND COOPERATIVE WITH CARE
[2022-04-18 05:14] LABS: Hematocrit 27.2 % (33.0-51.0); Hemoglobin 8.7 g/dL (11.5-16.0)
[2022-04-18 05:39] LABS: Albumin, Blood 2.2 g/dL (3.4-5.0); Anion Gap 8 mmol/L (6-16); Blood Urea Nitrogen 43 mg/dL (8-24); CO2, Blood 33 mmol/L (21-32); Chloride, Blood 103 mmol/L (98-108); Creatinine, Blood 4.76 mg/dL (0.40-1.00); Glomerular Filtration Rate 9 (60-); Glucose, Blood 110 mg/dL (70-99); Magnesium, Blood 2.7 mg/dL (1.6-2.4); Phosphorus, Blood 4.6 mg/dL (2.5-4.9); Potassium, Blood 3.3 mmol/L (3.5-5.5); Sodium, Blood 144 mmol/L (136-145)
--- NOTE | 2022-04-18 16:05 | NUR ---
DAYSHIFT SUMMARY No COVID s/sx observed, vitals stable, afebrile, saturations stable on room air. Patient reports moderate back pain, and pain radiating from buttocks to thighs bilaterally. PRN senimet given this am, PRN effective. Army Ranger assessed pt at bedside, pt scheduled for dialysis tomorrow. Pt reported no BM several days, today had large hard formed stool. OOB in chair for all meals today.
[2022-04-19 04:29] LABS: Hematocrit 28.6 % (33.0-51.0); Hemoglobin 9.1 g/dL (11.5-16.0)
[2022-04-19 05:03] LABS: Albumin, Blood 2.4 g/dL (3.4-5.0); Anion Gap 9 mmol/L (6-16); Blood Urea Nitrogen 50 mg/dL (8-24); Bun/Creatinine Ratio 8.6 (12.0-20.0); CO2, Blood 31 mmol/L (21-32); Calcium, Blood 9.1 mg/dL (8.5-10.1); Chloride, Blood 101 mmol/L (98-108); Creatinine, Blood 5.81 mg/dL (0.40-1.00); Glomerular Filtration Rate 7 (60-); Glucose, Blood 68 mg/dL (70-99); Magnesium, Blood 2.9 mg/dL (1.6-2.4); Phosphorus, Blood 5.1 mg/dL (2.5-4.9); Potassium, Blood 3.4 mmol/L (3.5-5.5); Sodium, Blood 141 mmol/L (136-145)
--- NOTE | 2022-04-19 05:52 | NUR ---
SHIFT SUMMARY NOC: PT HAVING PAIN TO LOWER BACK AND BILATERAL HIPS THROUGHOUT NIGHT. PRN TRAMADOL AND TYLENOL GIVEN WITH MINIMAL RELIEF. PT REPOSITIONED OFTEN. PT 1A WITH FWW TO BS. NO ADVERSE EVENTS.
--- NOTE | 2022-04-19 18:10 | NUR ---
DAYSHIFT SUMMARY No acute changes to patient status, continuing ABX therapy, dialysis this morning. Pt worked with OT/PT today. OOB for all meals, c/o severe back pain/leg pain, PRN sinimet and tramadol given for pain, PRN effective. Vital signs stable, afebrile, saturations stable on RA.
[2022-04-20 04:51] LABS: Hematocrit 28.6 % (33.0-51.0); Hemoglobin 8.8 g/dL (11.5-16.0)
[2022-04-20 05:16] LABS: Albumin, Blood 2.3 g/dL (3.4-5.0); Anion Gap 5 mmol/L (6-16); Blood Urea Nitrogen 26 mg/dL (8-24); Bun/Creatinine Ratio 6.3 (12.0-20.0); CO2, Blood 34 mmol/L (21-32); Calcium, Blood 9.5 mg/dL (8.5-10.1); Chloride, Blood 105 mmol/L (98-108); Creatinine, Blood 4.13 mg/dL (0.40-1.00); Glomerular Filtration Rate 10 (60-); Glucose, Blood 65 mg/dL (70-99); Magnesium, Blood 2.6 mg/dL (1.6-2.4); Phosphorus, Blood 3.6 mg/dL (2.5-4.9); Potassium, Blood 3.5 mmol/L (3.5-5.5); Sodium, Blood 144 mmol/L (136-145)
--- NOTE | 2022-04-20 05:41 | NUR ---
SHIFT SUMMARY NOC: PT HAVING 6-10/10 PAIN THROUGHOUT NIGHT TO BACK AND BILATERAL HIPS WITH PRN TRAMADOL AND TYLENOL. MD CALLED, NEW ORDERS FOR LIDOCAINE PATCHES. PT UP AND DOWN ALL NIGHT FROM BED TO CHAIR, CANNOT GET COMFORTABLE.
--- NOTE | 2022-04-20 16:32 | NUR ---
SHIFT SUMMARY PATIENT IS ALERT AND ORIENTED 3-4. PATIENT HAS HAD CONSTANT PAIN, PATIENT RATES 6-8. PATIENT WAS MEDICATED PER EMAR FOR PAIN ONCE THIS SHIFT. PATIENT HAD A SHOWER THIS SHIFT FOR HELP WITH PAIN. PATIENT WORKED WITH PT/OT THIS SHIFT. PATIENT HAS BEEN RESTLESS IN BED AND HASNT SLEPT MUCH LATELY PER PATIENT. PATIENT HAS HAD NO ACUTE EVENTS THIS SHIFT. PATIENT HAS HAD NO COMPLAINTS OF NAUSEA, VOMITTING, SOB THIS SHIFT. BED IN LOCKED AND LOWEST POSITION. CALL LIGHT IN PLACE. WILL MONITOR UNTIL SHIFT CHANGE.
[2022-04-21 04:43] LABS: Hemoglobin 9.1 g/dL (11.5-16.0)
[2022-04-21 05:08] LABS: Albumin, Blood 2.5 g/dL (3.4-5.0); Anion Gap 8 mmol/L (6-16); Blood Urea Nitrogen 33 mg/dL (8-24); Bun/Creatinine Ratio 6.5 (12.0-20.0); CO2, Blood 30 mmol/L (21-32); Calcium, Blood 9.6 mg/dL (8.5-10.1); Chloride, Blood 103 mmol/L (98-108); Creatinine, Blood 5.04 mg/dL (0.40-1.00); Glomerular Filtration Rate 8 (60-); Glucose, Blood 79 mg/dL (70-99); Magnesium, Blood 2.6 mg/dL (1.6-2.4); Phosphorus, Blood 4.1 mg/dL (2.5-4.9); Potassium, Blood 3.7 mmol/L (3.5-5.5); Sodium, Blood 141 mmol/L (136-145)
--- NOTE | 2022-04-21 06:27 | NUR ---
SHIFT SUMMARY NOC: PT GETS LANTUS 40 UNITS AT HS. PT HAS BEEN HYPOGLYCEMIC 40-80'S IN THE MORNING FOR PAST 3 DAYS FOR DAY SHIFT. UPDATED, LANTUS 4O UNITS HELD FOR TONIGHT. LANTUS 25 UNITS AT HS ONCE GIVEN LAST NIGHT. MORNING GLUCOSE 79 ON MORNING LABS. PT GIVEN JUICE AND CRACKERS. BLOOD SUGAR RECHECK 107. PT PAINFUL TO BACK AND BILATERAL HIPS. SLEPT IN RECLINER ALL NIGHT. SBA TO BSC FREQUENTLY.
--- NOTE | 2022-04-21 18:22 | NUR ---
DAYSHIFT SUMMARY Pt reports loss of taste, poor appetite, CBG at 1200 was 59. MD aware of poor intake & low CBGs. Dialysis this morning. Vitals stable, afebrile, saturations stable on RA. No acute changes to pt status, continuing IV treatment, and waiting SNF.
--- NOTE | 2022-04-22 04:08 | NUR ---
PT UP AND DOWN ALL NIGHT WITH PAIN FROM PREVIOUS NIGHTS. PT STATES HER BACK HAS BEEN HURTING SINCE SHE SLID TO THE FLOOR A FEW NIGHTS AGO. PT DOES NOT TOLERATE HEAT OR COLD TO BACK. PT CAN EAT ENSURE WHEN MEALS ARE UNAPPETIZING TO ASSIST WITH GLUCOSE CONTROL IN THE NIGHT.
[2022-04-22 04:43] LABS: Hemoglobin 8.8 g/dL (11.5-16.0)
[2022-04-22 05:01] LABS: Albumin, Blood 2.4 g/dL (3.4-5.0); Anion Gap 7 mmol/L (6-16); Blood Urea Nitrogen 26 mg/dL (8-24); Bun/Creatinine Ratio 6.3 (12.0-20.0); CO2, Blood 34 mmol/L (21-32); Calcium, Blood 9.3 mg/dL (8.5-10.1); Chloride, Blood 100 mmol/L (98-108); Creatinine, Blood 4.13 mg/dL (0.40-1.00); Glomerular Filtration Rate 10 (60-); Glucose, Blood 127 mg/dL (70-99); Magnesium, Blood 2.5 mg/dL (1.6-2.4); Phosphorus, Blood 3.2 mg/dL (2.5-4.9); Potassium, Blood 3.7 mmol/L (3.5-5.5); Sodium, Blood 141 mmol/L (136-145)
--- NOTE | 2022-04-22 19:29 | NUR ---
SHIFT SUMMARY- PT A/O X3, PT MEDICATED WITH TYLENOL THIS AM FOR LOWER BACK PAIN AND LIDOCAINE PATCHES APPLIED TO BILAT HIPS AND LOWER BACK. LS CLEAR, ON RA. 1+ BLE EDEMA NOTED. PT REPORTS APETITE IMPROVING. SBA UP TO BSC. PLEASANT AND COOPERATIVE T/O THE DAY. NO OTHER ACUTE CHANGES THIS SHIFT.
--- NOTE | 2022-04-23 04:37 | NUR ---
PT UP AND DOWN MOST OF THE NIGHT. NORCO GIVEN TWICE FOR HIP AND BACK PAIN. PT STATES SHE DOES BETTER DURING THE DAY WITH THE LIDOCAINE PATCHES AND IS ABLE TO RELAX. PT DID NOT THINK THE REMERON HELPED HER SLEEP.
[2022-04-23 05:04] LABS: Hematocrit 27.8 % (33.0-51.0); Hemoglobin 8.6 g/dL (11.5-16.0)
[2022-04-23 05:26] LABS: Albumin, Blood 2.4 g/dL (3.4-5.0); Anion Gap 7 mmol/L (6-16); Blood Urea Nitrogen 39 mg/dL (8-24); Bun/Creatinine Ratio 7.5 (12.0-20.0); CO2, Blood 33 mmol/L (21-32); Calcium, Blood 9.5 mg/dL (8.5-10.1); Chloride, Blood 98 mmol/L (98-108); Creatinine, Blood 5.19 mg/dL (0.40-1.00); Glomerular Filtration Rate 8 (60-); Glucose, Blood 160 mg/dL (70-99); Magnesium, Blood 2.7 mg/dL (1.6-2.4); Phosphorus, Blood 4.5 mg/dL (2.5-4.9); Potassium, Blood 3.9 mmol/L (3.5-5.5); Sodium, Blood 138 mmol/L (136-145)
--- NOTE | 2022-04-23 17:11 | NUR ---
SHIFT SUMMARY- PT A/O X4. SBA WITH FWW. PT MEDICATED X2 WITH NORCO FOR BACK PAIN. LS CLEAR, ON RA. HRR. 1+ BLE EDEMA. PT WITH HEMODIALYSIS TODAY. PT REPORTS FEELING NAUSEOUS THIS AM, POOR APPETITE TODAY. PICC DRESSING CHANGED TO JAVI. PT AWAITNG D/C TO [facility] ON TUESDAY. NO OTHER ACUTE CHANGES THIS SHIFT.
--- NOTE | 2022-04-24 04:11 | NUR ---
PT UP AND DOWN MOST OF NIGHT. PT IS ABLE TO SLEEP FOR 2 HOURS AT A TIME AFTER RECIEVING NORCO FOR PAIN. VSS, PT USING WALKER TO AMBULATE FROM BED TO CHAIR TO BSC.
[2022-04-24 05:09] LABS: Hematocrit 27.6 % (33.0-51.0); Hemoglobin 8.4 g/dL (11.5-16.0)
[2022-04-24 05:35] LABS: Albumin, Blood 2.4 g/dL (3.4-5.0); Anion Gap 5 mmol/L (6-16); Blood Urea Nitrogen 28 mg/dL (8-24); Bun/Creatinine Ratio 6.9 (12.0-20.0); CO2, Blood 35 mmol/L (21-32); Calcium, Blood 9.5 mg/dL (8.5-10.1); Chloride, Blood 102 mmol/L (98-108); Creatinine, Blood 4.03 mg/dL (0.40-1.00); Glomerular Filtration Rate 11 (60-); Glucose, Blood 142 mg/dL (70-99); Magnesium, Blood 2.8 mg/dL (1.6-2.4); Phosphorus, Blood 3.5 mg/dL (2.5-4.9); Potassium, Blood 4.3 mmol/L (3.5-5.5); Sodium, Blood 142 mmol/L (136-145)
--- NOTE | 2022-04-24 16:32 | NUR ---
SHIFT SUMMARY PATIENT IS ALERT AND ORIENTED X4. PATIENT HAS BEEN PLEASENT AND COOPERATIVE WITH CARE THIS SHIFT. PATIENT HAS HAD NO COMPLAINTS OF NAUSEA, SOB OR VOMITTING THIS SHIFT. PATIENT HAS BEEN MEDICATED PRN FOR PAIN REPORTED BY PATIENT. PATIENT HAS HAD NO ACUTE EVENTS THIS SHIFT. VITAL SIGNS REVIEWED. BED IN LOCKED AND LOWEST POSITION. CALL LIGHT IN PLACE. WILL MONITOR UNTIL SHIFT CHANGE.
--- NOTE | 2022-04-25 00:18 | NUR ---
PT IS CALLING OUT TONIGHT CONSTANTLY. WHEN ANSWERED SHE STATES SHE "JUST DOESN'T KNOW WHAT TO DO." DENIES NEED FOR MORE PAIN MEDICATIONS (ALREADY RECIEVING THEM SCHEDULED) DOES NOT WANT HEATING PAPD. MOVED SELF OFF OF PILLOWS STAFF PLACES TO COMFORT HER. PT IS STILL UNABLE TO SLEEP AFTER RECIEVING ALL. PRNS
[2022-04-25 05:00] LABS: Hematocrit 28.7 % (33.0-51.0); Hemoglobin 8.8 g/dL (11.5-16.0)
--- NOTE | 2022-04-25 05:19 | NUR ---
SHIFT SUMMARY PT IS CONFUSED THIS EVENING AXO X2. SHE IS IMPULSIVE AND GETS UP OUT OF BED WITHOUT CALLING. SHE IS DIZZY AND UNSTEADY ON HER FEET. SHE HAS NOT HAD CHEST PAIN THIS SHIFT, BUT HER TELE MONITOR HAS BEEN MOVING BETWEEN BBB, FLUTTER AND AFIB. SHE HAS REMAINED TACHYCARDIC. HER BP IS STILL SOFT. NO NEW ORDERS FROM WILL PASS ON ENCOURAGEMENT FOR EKG TO DAYSHIFT. CALL LIGHT WITHIN REACH AND BED IN LOWEST POSITION
--- NOTE | 2022-04-25 05:23 | NUR ---
SHIFT SUMMARY PT IS SITTING UP IN THE CHAIR SHE WAS UNABLE TO GET COMFORTABLE IN THE BED AND IS STILL COMPLAINING OF HIP PAIN BUT HAS DENIED THE NEED FOR HEATING PAD, MORE MEDICATIONS, PILLOWS AND REPOSITIONING. CALL LIGHT IS IN REACH.
--- NOTE | 2022-04-25 05:23 | NUR ---
TAYLOR LAST NOTE FROM THIS AUTHOR. ON THIS PT IT WAS MADE IN ERROR AND IS IN REGARDS TO A DIFFERENT PT.
[2022-04-25 05:27] LABS: Albumin, Blood 2.6 g/dL (3.4-5.0); Anion Gap 7 mmol/L (6-16); Blood Urea Nitrogen 38 mg/dL (8-24); Bun/Creatinine Ratio 7.5 (12.0-20.0); CO2, Blood 32 mmol/L (21-32); Calcium, Blood 9.4 mg/dL (8.5-10.1); Chloride, Blood 101 mmol/L (98-108); Glomerular Filtration Rate 8 (60-); Glucose, Blood 145 mg/dL (70-99); Magnesium, Blood 2.9 mg/dL (1.6-2.4); Phosphorus, Blood 4.3 mg/dL (2.5-4.9); Potassium, Blood 4.3 mmol/L (3.5-5.5); Sodium, Blood 140 mmol/L (136-145)
--- NOTE | 2022-04-25 15:36 | NUR ---
SHIFT SUMMARY PATIENT IS ALERT AND ORIENTED X4. PATIENT HAS BEEN PLEASENT AND COOPERATIVE WITH CARE THIS SHIFT. PATIENT IS A STANDBY ASSIST TO BSC. VITAL SIGNS REVIEWED. PATIENT HAS HAD NO ACUTE EVENTS THIS SHIFT. PATIENT HAS HAD NO COMPLAINTS OF PAIN, NAUSEA, SOB OR VOMITTING THIS SHIFT. PATIENT HAS ISOLATION FOR COVID ENDING TOMORROW AND IS AWAITING DISCHARGE TO SNF FOR CARE HOME ABX TREATMENT. BED IN LOCKED AND LOWEST POSITION. CALL LIGHT IN PLACE. WILL MONITOR UNTIL SHIFT CHANGE.
--- NOTE | 2022-04-26 06:22 | NUR ---
SHIFT SUMMARY PATIENT ALERT AND ORIENTED, ABLE TO MAKE NEEDS KNOWN TO STAFF, VSS, PATIENT REMAINS ON RA WITH O2 SAT >90%. DENIES SOB AND CHEST PAIN. NO SIGNIFICANT CHANGES OVERNIGHT. PATIENT SAT UP IN CHAIR ENTIRE NIGHT, OFFERED TO ASSIST PATIENT BACK TO BED BUT SHE DECLINED AND STATED SHE WAS MORE COMFORTABLE IN THE CHAIR. CHAIR ALARM IN PLACE FOR SAFETY D/T DOOR BEING CLOSED FOR ISOLATION PRECAUTIONS. PATIENT ABLE TO STAND PIVOT TO BSC WITH MINIMAL ASSISTANCE FROM STAFF. MEDICATED PER EMAR FOR PAIN. WILL REPORT TO DAY SHIFT RN.
[2022-04-26] MEDS ORDERED: ACET325 PO (13:01)
[2022-04-26] MEDS ORDERED: Colace100 MG PO (13:04)
[2022-04-26] MEDS ORDERED: ELIQUIS2.5 M1 PO (13:04)
[2022-04-26] MEDS ORDERED: GABA100 PO (13:05)
[2022-04-26] MEDS ORDERED: ONDA4ODT MM (13:08)
[2022-04-26] MEDS ORDERED: MIRT30ST PO (13:08)
[2022-04-26] MEDS ORDERED: MELATONIN5 M1 PO (13:09)
[2022-04-26] MEDS ORDERED: LIDO700A20 TOP (13:09)
[2022-04-26] MEDS ORDERED: HYDR1TAB94 PO (13:10)
--- NOTE | 2022-04-26 13:47 | NUR ---
REPORT TO GREG AT [facility]. PATIENT LEAVING [facility] AT AROUND 3PM VIA WHEELCHAIR TRANSPORT. PATIENT AO X 4 TODAY. REMAINS ON ROOM AIR. TRANSFERS WITH ONE PERSON ASSIST USING FWW.
== END 2022-04-26 16:12 | DRG 177 ==
LOC: MEDS 17:23
PROVIDERS: Internal Medicine; Internal Medicine Nephrology; ADMIT Internal Medicine
PROC: 8E0ZXY6 Isolation (ICD-10-PCS; principal; 2022-04-16)
PROC: 3E03329 Introduction of Other Anti-infective into Peripheral Vein, Percutaneous Approach (ICD-10-PCS; 2022-04-16)
DX: U07.1 COVID-19 (principal); I33.0 Acute and subacute infective endocarditis; N18.6 End stage renal disease; T82.6XXA Infection and inflammatory reaction due to cardiac valve prosthesis, initial encounter; I50.32 Chronic diastolic (congestive) heart failure; B95.4 Other streptococcus as the cause of diseases classified elsewhere; E66.9 Obesity, unspecified; G47.00 Insomnia, unspecified; Z99.2 Dependence on renal dialysis; E11.22 Type 2 diabetes mellitus with diabetic chronic kidney disease; Z95.2 Presence of prosthetic heart valve; G89.29 Other chronic pain; Z98.890 Other specified postprocedural states; Z98.49 Cataract extraction status, unspecified eye; Z79.899 Other long term (current) drug therapy; Z79.4 Long term (current) use of insulin; Z88.5 Allergy status to narcotic agent; G25.81 Restless legs syndrome; D63.1 Anemia in chronic kidney disease; E87.6 Hypokalemia; M54.59 Other low back pain; E83.41 Hypermagnesemia
CPT/HCPCS: 80069; 82947; 83735; 85014; 85018; 85025; 94760; 97110; 97116; 97162; 97165; 97530; 97535; A9270; J0696; J0881; J1815

== ENCOUNTER 2022-05-31 16:38 | Emergency (ER) | payer MEDICARE ==
[~2022-05-31] VITALS: Ht 157.5 cm; Wt 90.7 kg
[~2022-05-31 16:38] MED LIST changes: +ACET325 PO; +Colace100 MG PO; +ELIQUIS2.5 M1 PO; +GABA100 PO; +HYDR1TAB94 PO; +LIDO700A20 TOP; +MELATONIN5 M1 PO; +MIRT30ST PO; +ONDA4ODT MM
== END 2022-05-31 19:10 | disposition home or self-care (01) ==
LOC: ER 16:38
DX: T82.838A Hemorrhage due to vascular prosthetic devices, implants and grafts, initial encounter (principal); I48.91 Unspecified atrial fibrillation; E11.22 Type 2 diabetes mellitus with diabetic chronic kidney disease; I12.9 Hypertensive chronic kidney disease with stage 1 through stage 4 chronic kidney disease, or unspecified chronic kidney disease; N18.9 Chronic kidney disease, unspecified; Z79.01 Long term (current) use of anticoagulants; Z99.2 Dependence on renal dialysis; Y73.3 Surgical instruments, materials and gastroenterology and urology devices (including sutures) associated with adverse incidents; Y84.1 Kidney dialysis as the cause of abnormal reaction of the patient, or of later complication, without mention of misadventure at the time of the procedure
CPT/HCPCS: 99283

== ENCOUNTER 2022-11-03 17:27 | Emergency (ER) | payer MEDICARE ==
[~2022-11-03] VITALS: Ht 157.5 cm; Wt 82.5 kg
[2022-11-03 18:17] LABS: BASOPHILS ABSOLUTE AUTO 0.03 K/mm3 (0.00-0.23); BASOPHILS PERCENT AUTO 0 % (0-2); EOSINOPHILS ABSOLUTE AUTO 0.12 K/mm3 (0.00-0.68); EOSINOPHILS PERCENT AUTO 1 % (0-6); Hematocrit 29.6 % (33.0-51.0); Hemoglobin 10.1 g/dL (11.5-16.0); IMMATURE GRAN ABSOLUTE AUTO 0.03 K/mm3 (0.00-0.10); IMMATURE GRAN PERCENT AUTO 0 % (0-1); LYMPHOCYTES ABSOLUTE AUTO 0.81 K/mm3 (0.84-5.20); LYMPHOCYTES PERCENT AUTO 9 % (21-46); MONOCYTES ABSOLUTE AUTO 1.02 K/mm3 (0.16-1.47); MONOCYTES PERCENT AUTO 11 % (4-13); Mean Corpuscular HGB 31.4 pg (26.0-34.0); Mean Corpuscular HGB Conc 34.1 g/dL (31.5-36.5); Mean Corpuscular Volume 92 fL (80-100); NEUTROPHILS PERCENT AUTO 78 % (41-73); Platelet Count 177 K/mm3 (150-400); RDW Coefficient Variation 13.1 % (11.7-14.2); RDW Standard Deviation 44.2 fL (35.1-46.3); Red Blood Cell Count 3.22 M/mm3 (3.80-5.20); White Blood Cell Count 9.31 K/mm3 (4.00-11.30)
[2022-11-03 18:30] LABS: Albumin, Blood 2.7 g/dL (3.4-5.0); Albumin/Globulin Ratio 0.7 (0.8-1.8); Bilirubin, Total 0.5 mg/dL (0.1-1.0); Bun/Creatinine Ratio 8.5 (12.0-20.0); Potassium, Blood 4.1 mmol/L (3.5-5.5); Total Protein, Blood 6.7 g/dL (6.4-8.2)
[2022-11-03] MEDS ORDERED: Dilaudid 2 mg Ta2 MG (18:45)
[2022-11-03] MEDS ORDERED: POTA10T PO (18:49)
[2022-11-03 19:49] LABS: Source, Urine Straight Cath
[2022-11-03 20:26] LABS: Bilirubin, Urine Neg (Neg); Blood, Urine 1+ (Neg); Color, Urine Yellow (P-Yellow); Glucose Qualitative, Urine 2+ (Neg); Ketones, Urine 1+ (Neg); Leukocyte Esterase, Urine Neg (Neg); Nitrite, Urine Neg (Neg); Protein, Urine 3+ (Neg); Specific Gravity, Urine 1.015 (1.003-1.022); Urobilinogen, Urine NORM (Normal)
[2022-11-03 20:35] LABS: Appearance, Urine Hazy (Clear); Hyaline Casts 0-2 /lpf (0-2)
[2022-11-03 20:36] LABS: Amorphous Light (0-Heavy); Mucus Light (0-Heavy); Red Blood Cells, Urine 0-2 /hpf (0-2); White Blood Cells, Urine 0-2 /hpf (0-5)
[2022-11-03 20:37] LABS: Bacteria Mod /hpf; Squamous Epithelial Cells Few /hpf (Few)
== END 2022-11-03 21:22 | disposition home or self-care (01) ==
LOC: ER 17:27
PROVIDERS: Emergency Medicine
DX: R44.1 Visual hallucinations (principal); E11.22 Type 2 diabetes mellitus with diabetic chronic kidney disease; I13.2 Hypertensive heart and chronic kidney disease with heart failure and with stage 5 chronic kidney disease, or end stage renal disease; I50.9 Heart failure, unspecified; N18.6 End stage renal disease; Z79.899 Other long term (current) drug therapy; Z79.4 Long term (current) use of insulin
CPT/HCPCS: 70450; 71046; 80053; 81001; 85025; 87086; 93005; 93010